=== PATIENT | female | born 1950 | race Caucasian/White ===

== ENCOUNTER → 2020-09-29 | Day surgery (SDC) | payer MEDICARE, OTHER ==
[~2020-09-29] VITALS: Ht 157.4 cm; Wt 85.0 kg
[~2020-09-29] MED LIST: ACETAMINOPHEN500 M1 PO; ADVAIR 100-501 EACH INH; ASPIRIN CHEWABL81 MG PO; ASPIRIN EC81 MG PO; CYCLOBENZAPRINE5 MG PO; DIAZEPAM 2MG TAB2 MG PO; FEOSOL325 MG PO; LACTINEX1 EACH PO; LIPITOR 10MG TA10 MG PO; MAGNESIUM500 MG PO; MOTRIN600 MG PO; NORCO 5-325 TA1 EACH PO; ONDANSETRON ODT4 MG PO; OS-CAL500 MG PO; PERCOCET 5-3251 EACH PO; PROTONIX 40MG T40 MG PO; REGLAN10 MG PO; SYNTHROID125 MCG PO; TYLENOL #31 EACH PO; VENTOLIN HFA IN18 GM INH; VITAMIN D325 MCG PO; WELLBUTRIN XL150 MG PO; WOMAN'S LAXATIVE5 M1 PO
== END | disposition home or self-care (01) ==
LOC: FAS 08:16
DX: C56.9 Malignant neoplasm of unspecified ovary (principal); Z87.891 Personal history of nicotine dependence; F41.9 Anxiety disorder, unspecified; M19.90 Unspecified osteoarthritis, unspecified site; J44.9 Chronic obstructive pulmonary disease, unspecified; F32.9 Major depressive disorder, single episode, unspecified; K21.9 Gastro-esophageal reflux disease without esophagitis; E78.00 Pure hypercholesterolemia, unspecified; Z20.822 Contact with and (suspected) exposure to COVID-19; E03.9 Hypothyroidism, unspecified; M81.0 Age-related osteoporosis without current pathological fracture; Z88.1 Allergy status to other antibiotic agents; Z88.8 Allergy status to other drugs, medicaments and biological substances; Z79.82 Long term (current) use of aspirin; Z79.899 Other long term (current) drug therapy
CPT/HCPCS: 71045; 76000; 77001; C1788; J0690; J1644; J2001; J2250; J2405; J2704; J7120; U0002

== ENCOUNTER 2020-10-13 12:11 | Inpatient (IN) | payer MEDICARE, OTHER ==
[~2020-10-13] VITALS: Ht 157.5 cm; Wt 81.6 kg
[~2020-10-13 12:11] MED LIST changes: -LACTINEX1 EACH PO; -ONDANSETRON ODT4 MG PO; -REGLAN10 MG PO
[2020-10-13 13:41] LABS: BASOPHIL 1.1 % (0-2); EOSINOPHIL 1.5 % (0-7); HCT 32.8 % (37.0-47.0); HGB 10.1 g/dl (12.5-16.0); LYMPHOCYTE 88.3 % (15-48); MCH 28.6 pg (25.0-31.0); MCHC 30.8 g/dL (32.0-36.0); MCV 92.9 fL (78.0-100.0); MONOCYTE 3.3 % (0-12); NEUTROPHIL 5.4 % (41-80); NRBC 2.9; PLT 277 K/uL (150-400); RBC 3.53 M/uL (4.20-5.40); RDW 14.6 % (11.5-14.0)
[2020-10-13 13:46] LABS: WBC 2.7 K/uL (4.0-10.5)
[2020-10-13 13:53] LABS: ALBUMIN 2.8 g/dL (3.4-5.0); BILIRUBIN - TOTAL 0.5 mg/dL (0.2-1.0); BUN/CREAT RATIO (CALC) 15.9 RATIO; CREATININE 1.13 mg/dL (0.51-0.95); GLOBULIN (CALCULATION) 4.5 g/dL; POTASSIUM 3.9 mmol/L (3.5-5.1); TOTAL PROTEIN 7.3 g/dL (6.4-8.2)
[2020-10-13 14:04] LABS: BILIRUBIN 1+ mg/dL (NEGATIVE); BLOOD NEGATIVE Ery/uL (NEGATIVE); CLARITY CLEAR (CLEAR); COLOR YELLOW (YELLOW); GLUCOSE (U) NORMAL (NORMAL); LEUKOCYTES NEGATIVE Leu/uL (NEGATIVE); NITRITE NEGATIVE (NEGATIVE); PROTEIN 2+ mg/dL (NEGATIVE); SPECIFIC GRAVITY >=1.030 (1.001-1.030); pH 5.5 (5.0-9.0)
[2020-10-13 14:22] LABS: AMORPHOUS URATES CRYSTALS MODERATE; BACTERIA TRACE
[2020-10-13 14:23] LABS: GRANULAR CASTS TRACE
[2020-10-13 17:40] LABS: CORONAVIRUS 2019 SARS-COV-2 NEGATIVE (NEGATIVE); INFLUENZA A NAA NEGATIVE (NEGATIVE)
[2020-10-14 04:07] LABS: BASOPHIL 0.8 % (0-2); EOSINOPHIL 0 % (0-7); HCT 31.5 % (37.0-47.0); HGB 9.5 g/dl (12.5-16.0); MCH 28.5 pg (25.0-31.0); MCHC 30.2 g/dL (32.0-36.0); MCV 94.6 fL (78.0-100.0); MPV 9.9 fL (6.0-9.5); NEUTROPHIL 39.3 % (41-80); NRBC 0.8; PLT 236 K/uL (150-400); RBC 3.33 M/uL (4.20-5.40); RDW 14.9 % (11.5-14.0); WBC 3.9 K/uL (4.0-10.5)
[2020-10-14 04:10] LABS: LYMPHOCYTE 51.4 % (15-48)
[2020-10-14 04:31] LABS: BUN/CREAT RATIO (CALC) 14.2 RATIO; CREATININE 1.27 mg/dL (0.51-0.95); POTASSIUM 4.4 mmol/L (3.5-5.1)
[2020-10-15 03:55] LABS: BASOPHIL 0.8 % (0-2); EOSINOPHIL 1.5 % (0-7); HCT 28.9 % (37.0-47.0); HGB 8.8 g/dl (12.5-16.0); LYMPHOCYTE 35.2 % (15-48); MCH 28.7 pg (25.0-31.0); MCHC 30.4 g/dL (32.0-36.0); MCV 94.1 fL (78.0-100.0); MONOCYTE 8.2 % (0-12); MPV 9.5 fL (6.0-9.5); PLT 260 K/uL (150-400); RBC 3.07 M/uL (4.20-5.40); RDW 15.1 % (11.5-14.0); WBC 5.3 K/uL (4.0-10.5)
[2020-10-15 04:12] LABS: BUN/CREAT RATIO (CALC) 15.1 RATIO; CREATININE 1.06 mg/dL (0.51-0.95); POTASSIUM 3.9 mmol/L (3.5-5.1)
[2020-10-15 04:15] LABS: NEUTROPHIL 51.1 % (41-80)
[2020-10-16 09:17] LABS: HCT 35.9 % (37.0-47.0); HGB 10.8 g/dl (12.5-16.0); MCH 28.4 pg (25.0-31.0); MCHC 30.1 g/dL (32.0-36.0); MCV 94.5 fL (78.0-100.0); RBC 3.8 M/uL (4.20-5.40); RDW 15.3 % (11.5-14.0); WBC 8.3 K/uL (4.0-10.5)
[2020-10-16 10:14] LABS: POTASSIUM 3.6 mmol/L (3.5-5.1)
--- NOTE | 2020-10-16 16:41 | NUR ---
NG TUBE REMOVED AT 1500, PATIENT TOLERATED WELL.
[2020-10-17 06:18] LABS: BASOPHIL 0.7 % (0-2); EOSINOPHIL 3.3 % (0-7); HCT 31.2 % (37.0-47.0); HGB 9.5 g/dl (12.5-16.0); LYMPHOCYTE 29.4 % (15-48); MCH 28.7 pg (25.0-31.0); MCHC 30.4 g/dL (32.0-36.0); MCV 94.3 fL (78.0-100.0); NEUTROPHIL 47.2 % (41-80); NRBC 0.7; PLT 256 K/uL (150-400); RBC 3.31 M/uL (4.20-5.40); RDW 14.9 % (11.5-14.0)
[2020-10-17 06:35] LABS: BUN/CREAT RATIO (CALC) 8.4 RATIO; CREATININE 1.07 mg/dL (0.51-0.95)
[2020-10-17 15:54] LABS: MAGNESIUM 2.1 mg/dL (1.8-2.4); PHOSPHORUS 2.4 mg/dL (2.6-4.7)
[2020-10-18 06:25] LABS: BASOPHIL 0.7 % (0-2); EOSINOPHIL 2.1 % (0-7); HCT 37.3 % (37.0-47.0); HGB 11.2 g/dl (12.5-16.0); LYMPHOCYTE 30.7 % (15-48); MCH 28.5 pg (25.0-31.0); MCV 94.9 fL (78.0-100.0); MONOCYTE 6.1 % (0-12); MPV 9.7 fL (6.0-9.5); NEUTROPHIL 47.4 % (41-80); NRBC 0.6; PLT 331 K/uL (150-400); RBC 3.93 M/uL (4.20-5.40)
[2020-10-18 06:52] LABS: BUN/CREAT RATIO (CALC) 9.3 RATIO; CREATININE 1.07 mg/dL (0.51-0.95)
[2020-10-19 06:08] LABS: BASOPHIL 0.6 % (0-2); EOSINOPHIL 0.6 % (0-7); HCT 35.8 % (37.0-47.0); HGB 10.6 g/dl (12.5-16.0); LYMPHOCYTE 30.5 % (15-48); MCH 28.7 pg (25.0-31.0); MCHC 29.6 g/dL (32.0-36.0); MONOCYTE 5.1 % (0-12); NEUTROPHIL 50.8 % (41-80); NRBC 0.3; PLT 308 K/uL (150-400); RBC 3.69 M/uL (4.20-5.40); RDW 15.4 % (11.5-14.0)
[2020-10-19 06:09] LABS: WBC 10.9 K/uL (4.0-10.5)
[2020-10-19 06:21] LABS: BUN/CREAT RATIO (CALC) 12.8 RATIO; CREATININE 1.09 mg/dL (0.51-0.95); POTASSIUM 4.3 mmol/L (3.5-5.1)
--- NOTE | 2020-10-19 10:45 | NUR ---
DR QUIÑONEZ NOTIFIED NG TUBE ATTEMPTED MULTIPLE TIMES, PT IS ANXIOUS AND FIGHTING STAFF ON INSERTION, PULLING AT TUBE, PUSHING STAFF HANDS AWAY STATING "I WANT A MAN THAT IS SUPERIOR TO US TO DO THE JOB AND WE ARE NOT QUALIFIED. WHY IS THIS NOT STERILE AND NOT DONE IN A SURGICAL ROOM" DR QUIÑONEZ SAYS LEAVE OUT FOR NOW, MAY BE UP TO ATTEMPT INSERTION LATER
--- NOTE | 2020-10-19 11:44 | NUR ---
CALLED TO BEDSIDE TO ASSIST WITH NG TUBE INSERTION R/T MULTIPLE UNSUCCESSFUL ATTEMPTS. I WAS ABLE TO INSERT A 16FR NG TUBE IN PATIENT'S LEFT NARE. NG TUBE INSERTED TO PRIOR MEASURED LENGTH, AND SECURED TO PATIENTS NASAL BRIDGE WITH ADHESIVE. ATTEMPTED TO ASPIRATE GASTRIC CONTENTS FROM NG TUBE, AND DID NOT HAVE ANY RETURN OF GASTRIC CONTENTS, ONLY A SMALL AMOUNT OF THICK BLOODY CONTENT RETURNED. PRIOR TO INSERTION OF THE NG TUBE, PATIENT DID HAVE A CLOT NOTED POST MULTIPLE PRIOR ATTEMPTS (SHE HAD SPIT UP THE CLOT). CALLED FOR STAT KUB TO CHECK PLACEMENT. PRIMARY RN, WESLEY NOTIFED THAT NG TUBE HAS BEEN INSERTED AND CONFIRMATION OF PLACEMENT PENDING KUB IMAGING.
--- NOTE | 2020-10-19 12:19 | NUR ---
DR QUIÑONEZ TO FLOOR, SPOKE WITH DR MILLER VIA PHONE CONVERSATION, DR MILLER REPORTED NG ON CORRECT TRACT, BUT NEEDED TO BE ADVANCED APPROX 8-10CM. DR QUIÑONEZ AND I TO PATIENTS ROOM, WAS ABLE TO ADVANCE NG TUBE APPROX 10 MORE CM WITHOUT RESISTANCE. IMMEDIATE RETURN OF GREEN BILE. DR QUIÑONEZ HOOKED TO SUCTION, AND IMMEDIATE RETURN OF 500ML OF GREEN FLUID. PATIENT NOT IN DISTRESS AT THIS TIME REPORT OF ABOVE GIVEN TO WESLEY MALONE RN
[2020-10-20 06:49] LABS: BASOPHIL 1.8 % (0-2); EOSINOPHIL 1.6 % (0-7); HGB 10.2 g/dl (12.5-16.0); LYMPHOCYTE 29.3 % (15-48); MCH 28.9 pg (25.0-31.0); MCV 96.3 fL (78.0-100.0); MONOCYTE 6.1 % (0-12); MPV 9.5 fL (6.0-9.5); NEUTROPHIL 50.9 % (41-80); NRBC 0.2; PLT 314 K/uL (150-400); RBC 3.53 M/uL (4.20-5.40); RDW 15.8 % (11.5-14.0); WBC 8.5 K/uL (4.0-10.5)
[2020-10-20 06:53] LABS: BUN/CREAT RATIO (CALC) 11.5 RATIO; CREATININE 1.04 mg/dL (0.51-0.95); MAGNESIUM 1.9 mg/dL (1.8-2.4); PHOSPHORUS 1.8 mg/dL (2.6-4.7); POTASSIUM 3.8 mmol/L (3.5-5.1)
[2020-10-20 14:17] LABS: ALBUMIN 2.6 g/dL (3.4-5.0); BILIRUBIN - TOTAL 0.4 mg/dL (0.2-1.0); BUN/CREAT RATIO (CALC) 10.5 RATIO; CREATININE 0.95 mg/dL (0.51-0.95); GLOBULIN (CALCULATION) 4.7 g/dL; POTASSIUM 3.4 mmol/L (3.5-5.1); TOTAL PROTEIN 7.3 g/dL (6.4-8.2)
[2020-10-21 04:10] LABS: BASOPHIL 1.8 % (0-2); EOSINOPHIL 2.3 % (0-7); HCT 30.9 % (37.0-47.0); HGB 9.5 g/dl (12.5-16.0); LYMPHOCYTE 29.5 % (15-48); MCH 28.9 pg (25.0-31.0); MCHC 30.7 g/dL (32.0-36.0); MCV 93.9 fL (78.0-100.0); MPV 9.5 fL (6.0-9.5); NEUTROPHIL 50.7 % (41-80); NRBC 0.4; PLT 298 K/uL (150-400); RBC 3.29 M/uL (4.20-5.40); RDW 15.9 % (11.5-14.0); WBC 9.4 K/uL (4.0-10.5)
[2020-10-21 04:31] LABS: BUN/CREAT RATIO (CALC) 9.8 RATIO; CREATININE 0.82 mg/dL (0.51-0.95); POTASSIUM 3.1 mmol/L (3.5-5.1)
[2020-10-22 04:19] LABS: BASOPHIL 1.5 % (0-2); HCT 33.9 % (37.0-47.0); HGB 10.4 g/dl (12.5-16.0); LYMPHOCYTE 31.6 % (15-48); MCH 28.3 pg (25.0-31.0); MCHC 30.7 g/dL (32.0-36.0); MCV 92.1 fL (78.0-100.0); MPV 9.7 fL (6.0-9.5); NEUTROPHIL 53.4 % (41-80); NRBC 0.4; PLT 333 K/uL (150-400); RBC 3.68 M/uL (4.20-5.40); RDW 15.8 % (11.5-14.0); WBC 10.2 K/uL (4.0-10.5)
[2020-10-22 04:37] LABS: BUN/CREAT RATIO (CALC) 17.5 RATIO; CREATININE 0.8 mg/dL (0.51-0.95); MAGNESIUM 1.7 mg/dL (1.8-2.4); PHOSPHORUS 1.4 mg/dL (2.6-4.7); POTASSIUM 3.2 mmol/L (3.5-5.1)
[2020-10-23 06:54] LABS: ALBUMIN 1.9 g/dL (3.4-5.0); BASOPHIL 1.1 % (0-2); BILIRUBIN - TOTAL 0.2 mg/dL (0.2-1.0); BUN/CREAT RATIO (CALC) 26.3 RATIO; CREATININE 0.76 mg/dL (0.51-0.95); EOSINOPHIL 1.1 % (0-7); GLOBULIN (CALCULATION) 3.8 g/dL; HCT 34.2 % (37.0-47.0); HGB 10.8 g/dl (12.5-16.0); MAGNESIUM 1.8 mg/dL (1.8-2.4); MCHC 31.6 g/dL (32.0-36.0); MCV 91.7 fL (78.0-100.0); MONOCYTE 3.8 % (0-12); NEUTROPHIL 62.4 % (41-80); NRBC 0.3; PLT 313 K/uL (150-400); POTASSIUM 2.9 mmol/L (3.5-5.1); RBC 3.73 M/uL (4.20-5.40); RDW 16.1 % (11.5-14.0); TOTAL PROTEIN 5.7 g/dL (6.4-8.2); WBC 12.6 K/uL (4.0-10.5)
[2020-10-23 06:56] LABS: INR 1.05 (0.9-1.2); PROTHROMBIN TIME 13.1 SECONDS (11.8-13.4); PTT 33.2 SECONDS (24.4-34.7)
--- NOTE | 2020-10-23 15:19 | NUR ---
RD visited floor; tpn continuing at goal; new bag hung. RN Marzena verbalized anxiety from patient re: longer stay. cont to monitor nutrition support.
[2020-10-24 06:24] LABS: BASOPHIL 1.4 % (0-2); HCT 31.9 % (37.0-47.0); MCH 28.7 pg (25.0-31.0); MCHC 31.3 g/dL (32.0-36.0); MCV 91.7 fL (78.0-100.0); MONOCYTE 5.5 % (0-12); MPV 10.2 fL (6.0-9.5); NEUTROPHIL 60.4 % (41-80); NRBC 0.2; PLT 300 K/uL (150-400); RBC 3.48 M/uL (4.20-5.40); RDW 16.9 % (11.5-14.0); WBC 10.5 K/uL (4.0-10.5)
[2020-10-24 06:46] LABS: ALBUMIN 1.7 g/dL (3.4-5.0); BILIRUBIN - TOTAL 0.2 mg/dL (0.2-1.0); BUN/CREAT RATIO (CALC) 25.3 RATIO; CREATININE 0.79 mg/dL (0.51-0.95); GLOBULIN (CALCULATION) 3.7 g/dL; POTASSIUM 3.1 mmol/L (3.5-5.1); TOTAL PROTEIN 5.4 g/dL (6.4-8.2)
[2020-10-25 06:55] LABS: ALBUMIN 1.9 g/dL (3.4-5.0); BILIRUBIN - TOTAL 0.1 mg/dL (0.2-1.0); BUN/CREAT RATIO (CALC) 24.1 RATIO; CREATININE 0.87 mg/dL (0.51-0.95); GLOBULIN (CALCULATION) 3.9 g/dL; POTASSIUM 3.9 mmol/L (3.5-5.1); TOTAL PROTEIN 5.8 g/dL (6.4-8.2)
--- NOTE | 2020-10-25 16:24 | NUR ---
MEET WITH PT. THIS DATE. SHE HAS CHANGED HER MIND AND DOES NOT WANT TO GO TO RETIREMENT. SHE WANTS TO GO HOME AND HAVE [facility]/DOMIN[facility] HH.
--- NOTE | 2020-10-25 16:32 | NUR ---
DR. TORRES ORDERED TO D/C NAZ DRAIN. I WENT INTO PATIENT ROOM TO D/C NAZ DRAIN AND PATIENT WAS C/O NAUSEA AND PAIN AROUND MIDLINE INCISION. PRIMARY RN AWARE AND WAS OBTAINING NAUSEA MEDICATION FOR PATIENT. ONE STITCH REMOVED FROM NAZ DRAIN INSERTION SITE, AND SUCTION RELEASED FROM NAZ DRAIN BULB. I GENTLY WITH ONE DE LEON MOTION REMOVED NAZ DRAIN W/O ANY RESISTANCE OR DIFFICULTY. PATIENT TOLERATED WELL. INSERTION SITE APPEARED APPROX 2MM BY 2MM CIRCULAR IN SHAPE. NO DRAINAGE FROM INSERTION SITE NOTED. I COVERED SITE WITH COVADERM AND NOTIFIED PRIMARY RN OF REMOVAL. NAUSEA MEDICATION WAS ADMINISTERED, HOWEVER PATIENTS NAUSEA CONTINUED. PATIENT ONLY ORDERED PO MEDICATIONS, SO I CALLED DR. TORRES TO ALERT HIM OF THE PATIENTS NAUSEA AND PAIN. DR. TORRES REPORTED TO MONITOR NAUSEA POST ZOFRAN IV, AND ADMINISTER PO PAIN MEDICATION ONCE NAUSEA SUBSIDED. REPORTED TO UMANG JENNINGS.
[2020-10-26] MEDS ORDERED: REGLAN10 MG PO (11:29)
[2020-10-26] MEDS ORDERED: ONDANSETRON ODT4 MG PO (11:29)
[2020-10-26] MEDS ORDERED: PERCOCET 5-3251 EACH PO (11:30)
--- NOTE | 2020-10-26 12:39 | NUR ---
10/26/20 [facility] was notified of discharge.
[2020-10-26] MEDS ORDERED: LACTINEX1 EACH PO (12:55)
--- NOTE | 2020-10-26 14:27 | NUR ---
Patient and educated on nutritional goals for home. materials were discussed as well as printed for d/c. both patient and verified understanding.
== END 2020-10-26 15:00 | disposition home health service (06) | DRG 329 ==
LOC: FER 12:11 → FTCU 16:28 → FMS 16:28 → FTCU 10-15 07:36 → FMS 10-26 15:00
PROVIDERS: Internal Medicine; Nurse Practitioner Family; Student in an Organized Health Care Education/Training Program; ADMIT Allergy & Immunology Allergy
PROC: 0DBU0ZZ Excision of Omentum, Open Approach (ICD-10-PCS; 2020-10-13)
PROC: 0W9G0ZZ Drainage of Peritoneal Cavity, Open Approach (ICD-10-PCS; 2020-10-13)
PROC: 0DQN0ZZ Repair Sigmoid Colon, Open Approach (ICD-10-PCS; principal; 2020-10-13 18:00)
PROC: 3E0336Z Introduction of Nutritional Substance into Peripheral Vein, Percutaneous Approach (ICD-10-PCS; 2020-10-22)
DX: K63.1 Perforation of intestine (nontraumatic) (principal); K65.9 Peritonitis, unspecified; R18.0 Malignant ascites; C78.6 Secondary malignant neoplasm of retroperitoneum and peritoneum; C56.9 Malignant neoplasm of unspecified ovary; K56.7 Ileus, unspecified; K31.84 Gastroparesis; T45.1X5A Adverse effect of antineoplastic and immunosuppressive drugs, initial encounter; J44.9 Chronic obstructive pulmonary disease, unspecified; E03.9 Hypothyroidism, unspecified; Z20.822 Contact with and (suspected) exposure to COVID-19; E87.6 Hypokalemia; K21.9 Gastro-esophageal reflux disease without esophagitis; E78.00 Pure hypercholesterolemia, unspecified; G43.909 Migraine, unspecified, not intractable, without status migrainosus; D70.1 Agranulocytosis secondary to cancer chemotherapy; E55.9 Vitamin D deficiency, unspecified; Z96.612 Presence of left artificial shoulder joint; Z90.710 Acquired absence of both cervix and uterus; Z90.49 Acquired absence of other specified parts of digestive tract; Z88.8 Allergy status to other drugs, medicaments and biological substances; Z98.890 Other specified postprocedural states; Z87.891 Personal history of nicotine dependence; Z79.51 Long term (current) use of inhaled steroids; Z79.899 Other long term (current) drug therapy
CPT/HCPCS: 36415; 73020; 74018; 74019; 74022; 80048; 80053; 80202; 81001; 82150; 82962; 83605; 83735; 84100; 84134; 84478; 85025; 85610; 85730; 87040; 88305; 97116; 97161; 97165; 97166; 97530-GP; 97535; C9113; J0360; J0610; J1100; J1170; J1642; J1644; J1650; J1885; J2060; J2250; J2270; J2370; J2405; J2543; J2704; J3010; J3370; J3475; J3480; J7030; J7040; J7050; J7120; Q9967; U0002

== ENCOUNTER 2020-12-30 05:11 | Inpatient (IN) | payer MEDICARE, OTHER ==
[~2020-12-30] VITALS: Ht 157.5 cm; Wt 67.2 kg
[~2020-12-30 05:11] MED LIST changes: +LACTINEX1 EACH PO; +ONDANSETRON ODT4 MG PO; +REGLAN10 MG PO
[2020-12-30 06:23] LABS: BASOPHIL 1.3 % (0-2); EOSINOPHIL 1.1 % (0-7); HCT 36.2 % (37.0-47.0); HGB 11.5 g/dl (12.5-16.0); LYMPHOCYTE 56.7 % (15-48); MCH 31.2 pg (25.0-31.0); MCHC 31.8 g/dL (32.0-36.0); MCV 98.1 fL (78.0-100.0); MONOCYTE 5.9 % (0-12); MPV 10.9 fL (6.0-9.5); NEUTROPHIL 34.6 % (41-80); NRBC 0.4; PLT 120 K/uL (150-400); RBC 3.69 M/uL (4.20-5.40); RDW 15.2 % (11.5-14.0); WBC 5.3 K/uL (4.0-10.5)
[2020-12-30 06:31] LABS: ALBUMIN 4.1 g/dL (3.4-5.0); BILIRUBIN - TOTAL 0.6 mg/dL (0.2-1.0); BUN/CREAT RATIO (CALC) 15.8 RATIO; CREATININE 1.14 mg/dL (0.51-0.95); GLOBULIN (CALCULATION) 3.8 g/dL; POTASSIUM 3.4 mmol/L (3.5-5.1); TOTAL PROTEIN 7.9 g/dL (6.4-8.2)
[2020-12-30 06:43] LABS: LACTIC ACID 1.4 mmol/L (0.4-1.9)
[2020-12-30] MEDS ORDERED: ELIQUIS5 MG PO (10:16)
[2020-12-31 07:31] LABS: BASOPHIL 1.2 % (0-2); EOSINOPHIL 0.9 % (0-7); HCT 32.9 % (37.0-47.0); HGB 10.3 g/dl (12.5-16.0); LYMPHOCYTE 63.1 % (15-48); MCH 31.8 pg (25.0-31.0); MCHC 31.3 g/dL (32.0-36.0); MCV 101.5 fL (78.0-100.0); MONOCYTE 13.9 % (0-12); MPV 9.7 fL (6.0-9.5); NEUTROPHIL 20.9 % (41-80); NRBC 0; PLT 148 K/uL (150-400); RBC 3.24 M/uL (4.20-5.40); RDW 15.5 % (11.5-14.0); WBC 3.4 K/uL (4.0-10.5)
[2020-12-31 07:47] LABS: ALBUMIN 3.1 g/dL (3.4-5.0); BILIRUBIN - TOTAL 0.6 mg/dL (0.2-1.0); BUN/CREAT RATIO (CALC) 15.6 RATIO; CREATININE 0.9 mg/dL (0.51-0.95); GLOBULIN (CALCULATION) 3.7 g/dL; PHOSPHORUS 2.9 mg/dL (2.6-4.7); POTASSIUM 4.4 mmol/L (3.5-5.1); TOTAL PROTEIN 6.8 g/dL (6.4-8.2)
[2021-01-01 05:52] LABS: BASOPHIL 1.4 % (0-2); EOSINOPHIL 2.8 % (0-7); HCT 29.2 % (37.0-47.0); HGB 9.1 g/dl (12.5-16.0); LYMPHOCYTE 63.7 % (15-48); MCH 31.6 pg (25.0-31.0); MCHC 31.2 g/dL (32.0-36.0); MCV 101.4 fL (78.0-100.0); MONOCYTE 14.9 % (0-12); MPV 9.9 fL (6.0-9.5); NEUTROPHIL 16.9 % (41-80); NRBC 0; PLT 137 K/uL (150-400); RBC 2.88 M/uL (4.20-5.40); RDW 15.9 % (11.5-14.0)
[2021-01-01 05:54] LABS: WBC 2.9 K/uL (4.0-10.5)
[2021-01-01 06:09] LABS: BUN/CREAT RATIO (CALC) 17.5 RATIO; CREATININE 0.8 mg/dL (0.51-0.95); MAGNESIUM 1.8 mg/dL (1.8-2.4); POTASSIUM 3.2 mmol/L (3.5-5.1)
[2021-01-02 04:52] LABS: BASOPHIL 1.2 % (0-2); EOSINOPHIL 2.4 % (0-7); HCT 28.1 % (37.0-47.0); HGB 8.8 g/dl (12.5-16.0); MCH 31.4 pg (25.0-31.0); MCHC 31.3 g/dL (32.0-36.0); MCV 100.4 fL (78.0-100.0); NEUTROPHIL 12.9 % (41-80); NRBC 0; PLT 172 K/uL (150-400); RDW 15.5 % (11.5-14.0); WBC 2.6 K/uL (4.0-10.5)
[2021-01-02 04:54] LABS: LYMPHOCYTE 63.1 % (15-48)
[2021-01-02 05:09] LABS: BUN/CREAT RATIO (CALC) 11.6 RATIO; CREATININE 0.69 mg/dL (0.51-0.95); MAGNESIUM 1.7 mg/dL (1.8-2.4); PHOSPHORUS 1.9 mg/dL (2.6-4.7); POTASSIUM 3.1 mmol/L (3.5-5.1)
[2021-01-03 05:29] LABS: EOSINOPHIL 3.3 % (0-7); HCT 29.6 % (37.0-47.0); HGB 9.6 g/dl (12.5-16.0); LYMPHOCYTE 60.1 % (15-48); MCH 32.4 pg (25.0-31.0); MCHC 32.4 g/dL (32.0-36.0); MONOCYTE 19.6 % (0-12); NRBC 0; PLT 211 K/uL (150-400); RBC 2.96 M/uL (4.20-5.40); RDW 15.2 % (11.5-14.0)
[2021-01-03 06:06] LABS: ALBUMIN 2.3 g/dL (3.4-5.0); BILIRUBIN - TOTAL 0.7 mg/dL (0.2-1.0); BUN/CREAT RATIO (CALC) 8.8 RATIO; CREATININE 0.68 mg/dL (0.51-0.95); GLOBULIN (CALCULATION) 3.4 g/dL; MAGNESIUM 1.9 mg/dL (1.8-2.4); PHOSPHORUS 1.4 mg/dL (2.6-4.7); POTASSIUM 3.3 mmol/L (3.5-5.1); TOTAL PROTEIN 5.7 g/dL (6.4-8.2)
[2021-01-04 04:11] LABS: BASOPHIL 1.2 % (0-2); EOSINOPHIL 3.3 % (0-7); HCT 26.8 % (37.0-47.0); HGB 8.5 g/dl (12.5-16.0); MCHC 31.7 g/dL (32.0-36.0); MCV 100.8 fL (78.0-100.0); MPV 9.2 fL (6.0-9.5); NEUTROPHIL 21.6 % (41-80); NRBC 0; PLT 195 K/uL (150-400); RBC 2.66 M/uL (4.20-5.40); RDW 15.3 % (11.5-14.0); WBC 3.3 K/uL (4.0-10.5)
[2021-01-04 04:26] LABS: ALBUMIN 1.9 g/dL (3.4-5.0); BILIRUBIN - TOTAL 0.3 mg/dL (0.2-1.0); BUN/CREAT RATIO (CALC) 7.8 RATIO; CREATININE 0.64 mg/dL (0.51-0.95); GLOBULIN (CALCULATION) 3.2 g/dL; MAGNESIUM 2.2 mg/dL (1.8-2.4); PHOSPHORUS 1.5 mg/dL (2.6-4.7); POTASSIUM 3.8 mmol/L (3.5-5.1); TOTAL PROTEIN 5.1 g/dL (6.4-8.2)
[2021-01-04] MEDS ORDERED: PHOSPHOROUS PO (16:50)
[2021-01-04] MEDS ORDERED: PROVENTIL HFA6.7 GM INH (16:50)
== END 2021-01-04 17:54 | disposition home or self-care (01) | DRG 375 ==
LOC: FER 05:11 → FMS 08:17
PROVIDERS: Emergency Medicine Emergency Medical Services; Internal Medicine; ADMIT Internal Medicine
DX: C78.6 Secondary malignant neoplasm of retroperitoneum and peritoneum (principal); C56.9 Malignant neoplasm of unspecified ovary; K91.30 Postprocedural intestinal obstruction, unspecified as to partial versus complete; E83.42 Hypomagnesemia; E87.6 Hypokalemia; Z20.822 Contact with and (suspected) exposure to COVID-19; E83.39 Other disorders of phosphorus metabolism; R05.9 Cough, unspecified; J44.9 Chronic obstructive pulmonary disease, unspecified; F41.9 Anxiety disorder, unspecified; E03.9 Hypothyroidism, unspecified; K21.9 Gastro-esophageal reflux disease without esophagitis; E78.00 Pure hypercholesterolemia, unspecified; G43.909 Migraine, unspecified, not intractable, without status migrainosus; Z96.612 Presence of left artificial shoulder joint; Z86.718 Personal history of other venous thrombosis and embolism; Z88.8 Allergy status to other drugs, medicaments and biological substances; Z87.891 Personal history of nicotine dependence; Z79.01 Long term (current) use of anticoagulants; Z79.890 Hormone replacement therapy; Z79.899 Other long term (current) drug therapy; Z90.710 Acquired absence of both cervix and uterus
CPT/HCPCS: 36415; 71045; 74019; 80048; 80053; 83605; 83690; 83735; 84100; 84145; 84484; 85025; C9113; J1170; J1642; J1650; J1885; J2060; J2405; J2550; J2765; J3475; J3480; J7030; J7040; U0002

== ENCOUNTER 2021-03-14 12:43 | Emergency (ER) | payer MEDICARE, OTHER ==
[~2021-03-14 12:43] MED LIST changes: +ELIQUIS5 MG PO; +PHOSPHOROUS PO; +PROVENTIL HFA6.7 GM INH
[2021-03-14 20:01] LABS: BASOPHIL 1.4 % (0-2); EOSINOPHIL 4.6 % (0-7); HCT 28.5 % (37.0-47.0); HGB 9.2 g/dl (12.5-16.0); LYMPHOCYTE 31.9 % (15-48); MCH 34.3 pg (25.0-31.0); MCHC 32.3 g/dL (32.0-36.0); MCV 106.3 fL (78.0-100.0); MONOCYTE 7.3 % (0-12); MPV 9.3 fL (6.0-9.5); NEUTROPHIL 54.2 % (41-80); NRBC 0; PLT 129 K/uL (150-400); RBC 2.68 M/uL (4.20-5.40); RDW 14.5 % (11.5-14.0); WBC 6.6 K/uL (4.0-10.5)
[2021-03-14 20:25] LABS: ALBUMIN 2.2 g/dL (3.4-5.0); BILIRUBIN - TOTAL 0.3 mg/dL (0.2-1.0); BUN/CREAT RATIO (CALC) 12.9 RATIO; CREATININE 1.01 mg/dL (0.51-0.95); GLOBULIN (CALCULATION) 3.4 g/dL; POTASSIUM 3.2 mmol/L (3.5-5.1); TOTAL PROTEIN 5.6 g/dL (6.4-8.2)
== END 2021-03-14 23:09 | disposition home or self-care (01) ==
LOC: FER 12:43
PROVIDERS: Physician Assistant
DX: R18.8 Other ascites (principal); J44.9 Chronic obstructive pulmonary disease, unspecified; Z87.891 Personal history of nicotine dependence; Z88.8 Allergy status to other drugs, medicaments and biological substances; Z88.1 Allergy status to other antibiotic agents
CPT/HCPCS: 36415; 80053; 85025

== ENCOUNTER 2021-06-19 14:47 | Emergency (ER) | payer MEDICARE, OTHER ==
[2021-06-19 16:57] LABS: BASOPHIL 0.2 % (0-2); EOSINOPHIL 0.2 % (0-7); HCT 41.1 % (37.0-47.0); HGB 13.6 g/dl (12.5-16.0); LYMPHOCYTE 6.1 % (15-48); MCH 32.2 pg (25.0-31.0); MCHC 33.1 g/dL (32.0-36.0); MCV 97.2 fL (78.0-100.0); MONOCYTE 3.3 % (0-12); NEUTROPHIL 89.6 % (41-80); NRBC 0; PLT 341 K/uL (150-400); RBC 4.23 M/uL (4.20-5.40); RDW 12.9 % (11.5-14.0); WBC 20.7 K/uL (4.0-10.5)
[2021-06-19 17:32] LABS: LACTIC ACID 2.3 mmol/L (0.4-1.9)
[2021-06-19 17:36] LABS: ALBUMIN 2.8 g/dL (3.4-5.0); BILIRUBIN - TOTAL 2.8 mg/dL (0.2-1.0); BUN/CREAT RATIO (CALC) 28.7 RATIO; CREATININE 0.94 mg/dL (0.51-0.95); GLOBULIN (CALCULATION) 6.3 g/dL; POTASSIUM 4.4 mmol/L (3.5-5.1); TOTAL PROTEIN 9.1 g/dL (6.4-8.2)
== END 2021-06-19 18:35 | disposition other institution (70) ==
LOC: FER 14:47
PROVIDERS: Emergency Medicine
DX: A41.9 Sepsis, unspecified organism (principal); R65.20 Severe sepsis without septic shock; K56.609 Unspecified intestinal obstruction, unspecified as to partial versus complete obstruction; K22.3 Perforation of esophagus; Z88.1 Allergy status to other antibiotic agents; Z88.8 Allergy status to other drugs, medicaments and biological substances
CPT/HCPCS: 36415; 80053; 83605; 84145; 84484; 85025; 93005; J2543; J7030

== ENCOUNTER 2021-07-24 15:32 | Inpatient (IN) | payer MEDICARE, OTHER ==
[~2021-07-24] VITALS: Ht 157.5 cm; Wt 58.2 kg
[2021-07-24 16:54] LABS: BASOPHIL 0.8 % (0-2); EOSINOPHIL 0 % (0-7); HCT 32.2 % (37.0-47.0); HGB 10.4 g/dl (12.5-16.0); LYMPHOCYTE 37.6 % (15-48); MCH 30.5 pg (25.0-31.0); MCHC 32.3 g/dL (32.0-36.0); MCV 94.4 fL (78.0-100.0); NEUTROPHIL 52.1 % (41-80); NRBC 0; PLT 142 K/uL (150-400); RBC 3.41 M/uL (4.20-5.40); RDW 13.7 % (11.5-14.0)
[2021-07-24 17:13] LABS: ALBUMIN 2.8 g/dL (3.4-5.0); BILIRUBIN - TOTAL 0.4 mg/dL (0.2-1.0); BUN/CREAT RATIO (CALC) 18.3 RATIO; CREATININE 1.15 mg/dL (0.51-0.95); GLOBULIN (CALCULATION) 5.1 g/dL; POTASSIUM 2.7 mmol/L (3.5-5.1); TOTAL PROTEIN 7.9 g/dL (6.4-8.2)
[2021-07-24] MEDS ORDERED: PROTONIX 40MG T40 MG PO (21:08)
[2021-07-24] MEDS ORDERED: LASIX20 MG PO (21:09)
[2021-07-24] MEDS ORDERED: LACTULOSE10 G/15 ML PO (21:10)
--- NOTE | 2021-07-25 05:19 | NUR ---
0445 07/25/21 PATIENT HAS NOT VOIDED ALL SHIFT. PATRICK PEGUERO NOTIFIED. PATIENT BLADDER SCANNED THAT RESULTED >350ML. PETIT CATHETER INSRTED AND SPECIMEN SENT TO LAB.
[2021-07-25 07:26] LABS: BASOPHIL 0.7 % (0-2); EOSINOPHIL 0 % (0-7); HCT 27.8 % (37.0-47.0); HGB 8.7 g/dl (12.5-16.0); LYMPHOCYTE 37.4 % (15-48); MCH 30.1 pg (25.0-31.0); MCHC 31.3 g/dL (32.0-36.0); MCV 96.2 fL (78.0-100.0); MONOCYTE 9.5 % (0-12); MPV 10.3 fL (6.0-9.5); NEUTROPHIL 51.7 % (41-80); NRBC 0; PLT 125 K/uL (150-400); RBC 2.89 M/uL (4.20-5.40); RDW 13.7 % (11.5-14.0); WBC 4.6 K/uL (4.0-10.5)
[2021-07-25 07:41] LABS: INR 1.31 (0.9-1.2); PROTHROMBIN TIME 15.6 SECONDS (11.8-13.4)
[2021-07-25 08:00] LABS: ALBUMIN 2.2 g/dL (3.4-5.0); BILIRUBIN - TOTAL 0.3 mg/dL (0.2-1.0); BUN/CREAT RATIO (CALC) 19.6 RATIO; CREATININE 1.02 mg/dL (0.51-0.95); GLOBULIN (CALCULATION) 4.5 g/dL; MAGNESIUM 1.2 mg/dL (1.8-2.4); POTASSIUM 3.2 mmol/L (3.5-5.1); TOTAL PROTEIN 6.7 g/dL (6.4-8.2)
[2021-07-26 10:30] LABS: BASOPHIL 0.5 % (0-2); EOSINOPHIL 0 % (0-7); HCT 24.8 % (37.0-47.0); HGB 7.8 g/dl (12.5-16.0); LYMPHOCYTE 31.5 % (15-48); MCH 30.6 pg (25.0-31.0); MCHC 31.5 g/dL (32.0-36.0); MCV 97.3 fL (78.0-100.0); MPV 9.4 fL (6.0-9.5); NEUTROPHIL 62.5 % (41-80); NRBC 0; PLT 117 K/uL (150-400); RBC 2.55 M/uL (4.20-5.40); RDW 13.8 % (11.5-14.0); WBC 4.4 K/uL (4.0-10.5)
[2021-07-26 10:48] LABS: CREATININE 0.79 mg/dL (0.51-0.95); PHOSPHORUS 2.4 mg/dL (2.6-4.7)
[2021-07-26 10:53] LABS: MAGNESIUM 1.9 mg/dL (1.8-2.4)
--- NOTE | 2021-07-26 15:49 | NUR ---
MET WITH PT, SPOUSE AND DAUGHTER AT REQUEST OF DR. PERSON AND DR. LEWIS TO [facility]CUSS [facility]. THE PT AND FAMILY ARE IN AGREEMENT FOR A REFERRAL TO BE MADE TO [facility]. TC TO [phone]. FAXED CLINICALS TO [phone]. PT. SIGNED CHOICE FORM.
[2021-07-27 05:00] LABS: BASOPHIL 0.5 % (0-2); EOSINOPHIL 0.3 % (0-7); HCT 26.5 % (37.0-47.0); HGB 8.1 g/dl (12.5-16.0); MCH 30.3 pg (25.0-31.0); MCHC 30.6 g/dL (32.0-36.0); MCV 99.3 fL (78.0-100.0); MONOCYTE 4.7 % (0-12); MPV 10.4 fL (6.0-9.5); NEUTROPHIL 60.2 % (41-80); NRBC 0; RBC 2.67 M/uL (4.20-5.40); RDW 13.8 % (11.5-14.0); WBC 3.8 K/uL (4.0-10.5)
[2021-07-27 05:08] LABS: PLT 106 K/uL (150-400)
[2021-07-27 05:19] LABS: BUN/CREAT RATIO (CALC) 13.3 RATIO; CREATININE 0.75 mg/dL (0.51-0.95); MAGNESIUM 1.8 mg/dL (1.8-2.4); PHOSPHORUS 1.9 mg/dL (2.6-4.7); POTASSIUM 3.2 mmol/L (3.5-5.1)
[2021-07-27] MEDS ORDERED: ONDANSETRON ODT4 MG SL (12:16)
[2021-07-27] MEDS ORDERED: PROMETHEGA12.5 MG/SU PR (12:16)
[2021-07-27] MEDS ORDERED: MORPHINE S100 MG/5 M SL (12:16)
== END 2021-07-27 19:25 | disposition hospice, home (50) | DRG 372 ==
LOC: FER 15:32 → FMS 19:05
PROVIDERS: Emergency Medicine; Nurse Practitioner; ADMIT Internal Medicine
PROC: 0W9J30Z Drainage of Pelvic Cavity with Drainage Device, Percutaneous Approach (ICD-10-PCS; principal; 2021-07-25)
PROC: 0DH67UZ Insertion of Feeding Device into Stomach, Via Natural or Artificial Opening (ICD-10-PCS; 2021-07-25)
DX: K65.1 Peritoneal abscess (principal); N17.9 Acute kidney failure, unspecified; C56.9 Malignant neoplasm of unspecified ovary; F05 Delirium due to known physiological condition; R64 Cachexia; G89.3 Neoplasm related pain (acute) (chronic); E87.6 Hypokalemia; Z20.822 Contact with and (suspected) exposure to COVID-19; Z66 Do not resuscitate; Z51.5 Encounter for palliative care; E16.2 Hypoglycemia, unspecified; R44.1 Visual hallucinations; E03.9 Hypothyroidism, unspecified; J44.9 Chronic obstructive pulmonary disease, unspecified; E55.9 Vitamin D deficiency, unspecified; E78.5 Hyperlipidemia, unspecified; M19.90 Unspecified osteoarthritis, unspecified site; G25.81 Restless legs syndrome; F41.9 Anxiety disorder, unspecified; D63.0 Anemia in neoplastic disease; Z86.718 Personal history of other venous thrombosis and embolism; Z87.11 Personal history of peptic ulcer disease; Z90.49 Acquired absence of other specified parts of digestive tract; Z90.710 Acquired absence of both cervix and uterus; Z87.891 Personal history of nicotine dependence; Z98.890 Other specified postprocedural states; Z79.01 Long term (current) use of anticoagulants; Z79.899 Other long term (current) drug therapy; Z92.21 Personal history of antineoplastic chemotherapy; Z68.23 Body mass index [BMI] 23.0-23.9, adult
CPT/HCPCS: 36415; 71260; 75989; 80048; 80053; 83735; 84100; 84132; 85025; 85610; 87070; 87075; 87077; 87186; 87205; C9113; G0463; J1335; J2001; J2060; J2185; J2270; J2405; J3370; J3475; J3480; J7030; J7050; J7120; Q9967; U0002